=== PATIENT | female | born 1975 | race Caucasian/White ===

== ENCOUNTER → 2020-07-20 | Outpatient (CLI) | payer BC ==
--- NOTE | 2020-07-21 02:27 | RAD ---
Limited right back ultrasound dated 07/20/2020. No comparison available. CLINICAL INDICATION: Right back lump. FINDINGS: Sonographic imaging was performed in the right back near the area of lump and redness. There is a sma ll hypoechoic collection just deep to the skin surface that measures up to 1.6 cm in size. There is a possible linear tract that extends to the skin surface. IMPRESSION: Hypoechoic collection just deep to the skin surface near the area of palpable lump. This is indetermi alexis could represent hematoma or abscess. Correlate with physical exam findings. Electronically signed by: Ray Knox MD (07/21/2020 2:25 AM) [email or web address]
== END ==
LOC: US 14:39
PROVIDERS: ATTEND Family Medicine
DX: R22.41 Localized swelling, mass and lump, right lower limb (principal)
CPT/HCPCS: 76881